=== PATIENT | male | born 1965 | race Caucasian/White ===

== ENCOUNTER 2019-05-24 17:33 | Emergency (ER) | payer OTHER ==
[2019-05-24 18:02] LABS: APPEARANCE,URINE Clear (CLEAR); BILIRUBIN,URINE Negative (NEGATIVE); COLOR,URINE Yellow (YELLOW); GLUCOSE, URINE (UA) Negative (NEGATIVE); KETONES,URINE Negative (NEGATIVE); LEUKOCYTE ESTERASE ,URINE Negative (NEGATIVE); NITRATE,URINE Negative (NEGATIVE); OCCULT BLOOD,URINE Negative (NEGATIVE); PH,URINE 5.5 (5.0-8.0); PROTEIN,URINE Negative (NEGATIVE)
[2019-05-24 18:04] LABS: BASOPHILS % (AUTO) 0.9 % (0.0-5.0); EOSINOPHILS % (AUTO) 2.9 % (0.0-8.0); HEMATOCRIT 41.2 % (42-54); MEAN CORPUSCULAR HEMOGLOBIN 32.9 pg (27.0-33.0); MEAN CORPUSCULAR HGB CONC 35.6 g/dL (32.0-36.0); MEAN CORPUSCULAR VOLUME 92.4 fL (79-99); MONOCYTES % (AUTO) 15.8 % (3.0-13.0); NEUTROPHILS % (AUTO) 52.4 % (40.0-77.0); PLATELET COUNT (AUTO) 192 K/uL (130-400); RED BLOOD CELL COUNT(AUTO) 4.46 MIL/uL (4.50-6.20); RED CELL DISTRIBUTION WIDTH 13.4 % (11.0-15.5); WHITE BLOOD COUNT (AUTO) 5.5 K/uL (4.8-10.8)
[2019-05-24 18:20] LABS: CREATININE 1.1 mg/dL (0.5-1.5); POTASSIUM 3.7 mmol/L (3.5-5.1)
[2019-05-24 18:25] LABS: ALBUMIN 3.3 g/dL (3.5-5.0); BILIRUBIN,DIRECT 0.1 mg/dL (0.0-0.3); BILIRUBIN,TOTAL 0.4 mg/dL (0.2-1.0); TOTAL PROTEIN, SERUM 6.9 g/dL (6.0-8.3)
[2019-05-24] MEDS ORDERED: SODIUM CHLORIDE 0.9% 1000ML 1,000 ML IV ONE ×2 (18:34→20:58)
[2019-05-24] MEDS ORDERED: LEVOFLOXACIN 500 MG/D5W 100 ML 100 ML ONE (20:58)
== END 2019-05-24 23:06 | disposition home or self-care (01) ==
LOC: EDH 17:33
DX: K52.9 Noninfective gastroenteritis and colitis, unspecified (principal); E86.0 Dehydration; R53.1 Weakness; I10 Essential (primary) hypertension
CPT/HCPCS: 36415; 74176; 80048; 80076; 81003; 83690; 83735; 85025; 86677; 93005; 96361; 96365; 96366; 99285; J1956; J7030 ×2

== ENCOUNTER 2020-10-11 08:05 | Day surgery (SDC) | payer OTHER ==
[2020-10-04 13:26] LABS: BASOPHILS % (AUTO) 1.2 % (0.0-5.0); EOSINOPHILS % (AUTO) 3.2 % (0.0-8.0); HEMATOCRIT 43.3 % (42-54); LYMPHOCYTES % (AUTO) 27.4 % (21.0-51.0); MEAN CORPUSCULAR HEMOGLOBIN 31.9 pg (27.0-33.0); MEAN CORPUSCULAR HGB CONC 35.3 g/dL (32.0-36.0); MEAN CORPUSCULAR VOLUME 90.4 fL (79-99); MONOCYTES % (AUTO) 10.3 % (3.0-13.0); NEUTROPHILS % (AUTO) 57.5 % (40.0-77.0); PLATELET COUNT (AUTO) 167 K/uL (130-400); RED BLOOD CELL COUNT(AUTO) 4.79 MIL/uL (4.50-6.20); RED CELL DISTRIBUTION WIDTH 12.5 % (11.0-15.5); WHITE BLOOD COUNT (AUTO) 5.6 K/uL (4.8-10.8)
[2020-10-04 13:39] LABS: CREATININE 1.1 mg/dL (0.5-1.5); POTASSIUM 4.5 mmol/L (3.5-5.1)
[2020-10-10 12:41] VITALS: BP 189/98
[2020-10-11] VITALS (17 sets, daily range): BP systolic 135–194; BP diastolic 58–114
[~2020-10-11] VITALS: Ht 188 cm; Wt 134.2 kg
[~2020-10-11 08:05] MED LIST: BUSP15TA3 PO; CEFAZOLIN 3GM /D5W 100ML 100 ML IV SCH; CEFAZOLIN SODIUM 1 GM VIAL ONE; CHOL200016 PO; CYAN250014 PO; DULO60CA64 PO; FENTANYL CITRATE PF 50 MCG/1 ML 2ML VIAL ONE; GEMF600T5 PO; GLYCOPYRROLATE 1 MG/5 ML SYRINGE ONE; LIDOCAINE PF 2% 5ML ABBOJECT ONE; LOSA100T58 PO; METF-446 PO; METO-391 PO; MIDAZOLAM HCL 1 MG/ML 2ML VIAL ONE; NEOSTIGMINE 5MG/5ML SYR IV ONE; ONDANSETRON HCL 4 MG/2 ML VIAL ONE; PROPOFOL 10 MG/ML 20ML VIAL IV ONE; ROCURONIUM 10MG/1ML SYR 10 MG/ML ML ONE; SILD20TA14 PO; SODIUM CHLORIDE 0.9% 1000ML 1,000 ML IV ONE; SUCCINYLCHOLINE CHLORIDE 20 MG/ML 10 ML VIAL ONE; TRAM50TA4 PO; TRAZ150T79 PO; TRIAM15CRM TP
[2020-10-11] MEDS ORDERED: FENTANYL CITRATE PF 50 MCG/1 ML 2ML VIAL ONE (08:12)
[2020-10-11] MEDS ORDERED: PROPOFOL 10 MG/ML 20ML VIAL IV ONE (08:33)
[2020-10-11] MEDS ORDERED: CEPH-578 PO (09:11)
[2020-10-11] MEDS ORDERED: ACET1TAB25 PO (09:11)
[2020-10-11] MEDS ORDERED: ENALAPRILAT DIHYDRATE 1.25MG/ML 1ML VIAL IV ONE (09:37)
[2020-10-11] MEDS ORDERED: LABETALOL 20 MG/4 ML DISP.SYRIN IV ONE (09:48)
--- NOTE | 2020-10-11 10:20 | NUR ---
Pt received Pt received from PACU via stretcher accompanied by MARSHALL Tamez. Pt awake and alert, no c/o. Denies any pain. Has man wrap to left knee. Dry and intact. Good pedal pulses palpated. brought in to bedside.
--- NOTE | 2020-10-11 11:10 | NUR ---
D/C Pt prepared for discharge. Crutches given to pt. States he is knowledgeable of how to use them; has used them before. Informed them of electronic prescription for acetaminophen with codeine and keflex sent by Dr. Vann to [facility]. Pt denies any pain. Verbal and written discharge instructions given with date and time of follow up appointment. Verbalized understanding. Pt was then taken to private vehicle via wheelchair in no distress. Pt and very appreciative of care.
== END 2020-10-11 11:15 ==
LOC: DAH 08:05 → EDSTATUS 10:00 → DAH 11:15
PROVIDERS: ATTEND Orthopaedic Surgery
DX: S83.242A Other tear of medial meniscus, current injury, left knee, initial encounter (principal); M22.42 Chondromalacia patellae, left knee; M17.12 Unilateral primary osteoarthritis, left knee; R26.9 Unspecified abnormalities of gait and mobility; G89.29 Other chronic pain; I10 Essential (primary) hypertension; F41.9 Anxiety disorder, unspecified; F43.10 Post-traumatic stress disorder, unspecified; E78.5 Hyperlipidemia, unspecified; Z86.010 Personal history of colon polyps; G47.30 Sleep apnea, unspecified; M23.8X2 Other internal derangements of left knee; Z99.89 Dependence on other enabling machines and devices; W19.XXXA Unspecified fall, initial encounter; Y93.89 Activity, other specified; Y92.69 Other specified industrial and construction area as the place of occurrence of the external cause; Y99.0 Civilian activity done for income or pay; Z20.828 Contact with and (suspected) exposure to other viral communicable diseases
CPT/HCPCS: 29881; 36415; 80048; 82948 ×2; 85025; A4215; A4221; A4222; A4223; A4606; A4649 ×2; A4663; A4930; A6223; J0330 ×2; J0690; J2001 ×2; J2250; J2405; J2704 ×2; J2710; J3010 ×2; J3490 ×2; J7030; U0003

== ENCOUNTER 2023-10-06 08:01 | Observation (INO) | payer OTHER ==
[~2023-10-06] VITALS: Ht 188 cm; Wt 123.4 kg
[~2023-10-06 08:01] MED LIST changes: +ACET-2079 PO; -CEFAZOLIN 3GM /D5W 100ML 100 ML IV SCH; -CEFAZOLIN SODIUM 1 GM VIAL ONE; +CEPH-578 PO; -CHOL200016 PO; +CHOL200052 PO; -FENTANYL CITRATE PF 50 MCG/1 ML 2ML VIAL ONE; -GEMF600T5 PO; +GEMF600T89 PO; -GLYCOPYRROLATE 1 MG/5 ML SYRINGE ONE; -LIDOCAINE PF 2% 5ML ABBOJECT ONE; -LOSA100T58 PO; +LOSA100T59 PO; -MIDAZOLAM HCL 1 MG/ML 2ML VIAL ONE; -NEOSTIGMINE 5MG/5ML SYR IV ONE; -ONDANSETRON HCL 4 MG/2 ML VIAL ONE; -PROPOFOL 10 MG/ML 20ML VIAL IV ONE; -ROCURONIUM 10MG/1ML SYR 10 MG/ML ML ONE; -SODIUM CHLORIDE 0.9% 1000ML 1,000 ML IV ONE; -SUCCINYLCHOLINE CHLORIDE 20 MG/ML 10 ML VIAL ONE
[2023-10-06 08:55] LABS: HEMATOCRIT 43.2 % (42-54); MEAN CORPUSCULAR HEMOGLOBIN 32.6 pg (27.0-33.0); MEAN CORPUSCULAR HGB CONC 36.6 g/dL (32.0-36.0); MEAN CORPUSCULAR VOLUME 89.3 fL (79-99); PLATELET COUNT (AUTO) 146 K/uL (130-400); RED BLOOD CELL COUNT(AUTO) 4.84 MIL/uL (4.50-6.20); RED CELL DISTRIBUTION WIDTH 12.8 % (11.0-15.5)
[2023-10-06 09:12] LABS: CREATININE 1.1 mg/dL (0.5-1.5); POTASSIUM 4.5 mmol/L (3.5-5.1)
[2023-10-06 09:17] LABS: ALBUMIN 3.5 g/dL (3.5-5.0); BILIRUBIN,TOTAL 0.4 mg/dL (0.2-1.0); TOTAL PROTEIN, SERUM 7.5 g/dL (6.0-8.3)
[2023-10-06 10:10] LABS: B-TYPE NATRIURETIC PEPTIDE 30 pg/mL (0-100)
[2023-10-06] MEDS ORDERED: ASPIRIN 81MG CHEW TAB PO ONE (10:30)
[2023-10-06 11:16] LABS: EOSINOPHILS % (MANUAL) 8 % (1-6); LYMPHOCYTES % (MANUAL) 29 % (22-44); MAN.DIFF COMMENT-IMPRESSION MANUAL DIFFERENTIAL; MONOCYTES % (MANUAL) 14 % (2-9); PLATELET MORPHOLOGY COMMENT ADEQUATE; REACTIVE LYMPHOCYTES 2 % (0-0); SEGMENTED NEUTROPHILS % 47 % (40-70); TOTAL CELLS COUNTED 100
[2023-10-06] MEDS ORDERED: HYDRALAZINE 20MG/ML VIAL IV PRN (12:30)
[2023-10-06] MEDS ORDERED: POTASSIUM CHLORIDE 10% ELIXIR 20 MEQ/15 ML UDCUP PO PRN (12:30)
[2023-10-06] MEDS ORDERED: KCL 20 MEQ ERTAB PO PRN (12:30)
[2023-10-06] MEDS ORDERED: POTASSIUM CHLORIDE 20MEQ/100ML 100 ML IV PRN (12:30)
[2023-10-06] MEDS ORDERED: MAGNESIUM 2GM PREMIX 50ML 50 ML IV PRN (12:30)
[2023-10-06] MEDS ORDERED: BUSPIRONE HCL 5 MG TABLET PO PRN (14:00)
[2023-10-06] MEDS ORDERED: ACETAMINOPHEN 325 MG TAB PO PRN (14:00)
[2023-10-06] MEDS ORDERED: TRAMADOL HCL 50 MG TABLET PO PRN (14:00)
[2023-10-06] MEDS ORDERED: ONDANSETRON 4MG INJ IVP PRN (14:00)
[2023-10-06] MEDS ORDERED: METO-409 PO (14:20)
[2023-10-06] MEDS ORDERED: METO-391 PO (14:20)
[2023-10-06] MEDS ORDERED: BUSP15TA3 PO (14:20)
[2023-10-06] MEDS ORDERED: TRAM50TA4 PO (14:20)
[2023-10-06 14:59] LABS: APPEARANCE,URINE CLEAR (CLEAR); BILIRUBIN,URINE NEGATIVE (NEGATIVE); COLOR,URINE YELLOW (YELLOW); GLUCOSE, URINE (UA) TRACE mg/dL (NEGATIVE); KETONES,URINE NEGATIVE (NEGATIVE); LEUKOCYTE ESTERASE ,URINE NEGATIVE Leu/uL (NEGATIVE); NITRATE,URINE NEGATIVE (NEGATIVE); OCCULT BLOOD,URINE NEGATIVE (NEGATIVE); PH,URINE 5.5 (5.0-8.0); PROTEIN,URINE 10 mg/dL (NEGATIVE); UROBILINOGEN,URINE 0.2 mg/dL (0.2-1.0)
[2023-10-06 15:02] LABS: ADD UA MICROSCOPIC YES
[2023-10-06 15:04] LABS: MUCUS,URINE RARE LPF (None Seen); RBC,URINE 0-1 /HPF (0-1); SQUAMOUS EPITHELIAL CELL,UR RARE /HPF (0-2)
[2023-10-06] MEDS: INSULIN HUMULIN R 100 UNIT/ML 3ML SQ SCH ×4 (16:12→21:00)
[2023-10-06 16:48] VITALS: BP 159/90; PULSE 60; RESP 18
[2023-10-06 19:30] VITALS: O2SAT 93
[2023-10-06 19:44] VITALS: BP 145/85; PULSE 77; RESP 18
[2023-10-06] MEDS: FAMOTIDINE 20MG TAB PO SCH (20:36)
[2023-10-06] MEDS ORDERED: METOPROLOL SUCCINATE 50 MG TAB.SR.24H PO SCH (21:00)
[2023-10-07 01:04] VITALS: BP 135/85; PULSE 59; RESP 20
[2023-10-07 04:02] LABS: HEMOGLOBIN A1C 8.3 % (4.0-6.0)
[2023-10-07 04:19] LABS: THYROID STIMULATING HORMONE 4.52 uIU/mL (0.36-3.74)
[2023-10-07 04:34] VITALS: BP 129/69; PULSE 57; RESP 18
[2023-10-07] MEDS: INSULIN HUMULIN R 100 UNIT/ML 3ML SQ SCH ×2 (06:17→12:36)
[2023-10-07 07:00] VITALS: O2SAT 93
[2023-10-07] MEDS ORDERED: REGADENOSON 0.4 MG/5 ML PF SYG IVP SCH (07:00)
[2023-10-07 08:12] LABS: BASOPHILS # (AUTO) 0.07 K/uL (0.00-0.20); BASOPHILS % (AUTO) 1.2 % (0.0-5.0); EOSINOPHILS # (AUTO) 0.22 K/uL (0.00-0.70); EOSINOPHILS % (AUTO) 3.7 % (0.0-8.0); IMMATURE GRANULOCYTE ABSOLUTE 0.02 K/uL (0-1); LYMPHOCYTES # (AUTO) 2.3 K/uL (1.0-4.8); LYMPHOCYTES % (AUTO) 38.2 % (21.0-51.0); MEAN CORPUSCULAR HGB CONC 34.9 g/dL (32.0-36.0); MEAN CORPUSCULAR VOLUME 94.5 fL (79-99); MONOCYTES # (AUTO) 0.6 K/uL (0.1-1.0); MONOCYTES % (AUTO) 10.3 % (3.0-13.0); NEUTROPHILS # (AUTO) 2.7 K/uL (1.8-7.7); NEUTROPHILS % (AUTO) 46.3 % (40.0-77.0); PLATELET COUNT (AUTO) 153 K/uL (130-400); RED BLOOD CELL COUNT(AUTO) 4.55 MIL/uL (4.50-6.20); RED CELL DISTRIBUTION WIDTH 13.2 % (11.0-15.5); WHITE BLOOD COUNT (AUTO) 5.9 K/uL (4.8-10.8)
[2023-10-07 08:52] LABS: ALBUMIN 3.2 g/dL (3.5-5.0); BILIRUBIN,TOTAL 0.3 mg/dL (0.2-1.0); MAGNESIUM 1.8 mg/dL (1.80-2.40); POTASSIUM 4.1 mmol/L (3.5-5.1); TOTAL PROTEIN, SERUM 6.8 g/dL (6.0-8.3)
[2023-10-07] MEDS ORDERED: ASPIRIN 81MG CHEW TAB PO SCH (09:00)
[2023-10-07] MEDS ORDERED: ENOXAPARIN SODIUM 40 MG/0.4 ML SYRINGE SQ SCH (09:00)
[2023-10-07] MEDS ORDERED: METOPROLOL SUCCINATE 50 MG TAB.SR.24H PO SCH (09:00)
[2023-10-07] MEDS: FAMOTIDINE 20MG TAB PO SCH (09:46)
[2023-10-07] MEDS ORDERED: GEMF600T PO (12:42)
[2023-10-07] MEDS ORDERED: ATOR20TA65 PO (12:42)
[2023-10-07 12:48] VITALS: BP 128/74; PULSE 61; RESP 16
[2023-10-07] MEDS ORDERED: ASPI-1197 PO (12:54)
== END 2023-10-07 16:30 | disposition home or self-care (01) ==
LOC: EDH 08:01 → INTOOBSV 12:23 → EDHIP 12:23 → 2AH 16:25
PROVIDERS: ADMIT Hospitalist; ATTEND Hospitalist
DX: R07.89 Other chest pain (principal); I10 Essential (primary) hypertension; E11.9 Type 2 diabetes mellitus without complications; E78.00 Pure hypercholesterolemia, unspecified; F41.9 Anxiety disorder, unspecified; Q33.3 Agenesis of lung; G47.33 Obstructive sleep apnea (adult) (pediatric); Z79.82 Long term (current) use of aspirin; Z79.899 Other long term (current) drug therapy; Z87.820 Personal history of traumatic brain injury; Z68.36 Body mass index [BMI] 36.0-36.9, adult; Z98.890 Other specified postprocedural states
CPT/HCPCS: 96372 ×2; 99285; 84484 ×3; 80053 ×2; 83880; 85025 ×2; 82948 ×5; 81001; 36415 ×2; 71045; 93971; 93005; 83036; 84443; 83735; 80061; 93017; 78452; 93306; J1815 ×3; G0378 ×3; J1650; J2785; A9500 ×2; 96374